=== PATIENT | female | born 2000 | race African-American/Black ===

== ENCOUNTER 2025-05-04 23:25 | Emergency (ER) | payer MEDICAID ==
[~2025-05-04] VITALS: Ht 167.6 cm; Wt 68.7 kg
[2025-05-05] MEDS ORDERED: KETOROLAC TROMETH 60MG/2ML VIAL IM ONE (00:15)
--- NOTE | 2025-05-05 01:11 | DVH ---
CLINICAL INDICATION: Trauma/fall TECHNIQUE: 1-view pelvis, 2 views left hip, 4 views left femur XY L FEMUR XRAY, XY L HIP COMPLETE XR AY Comparison: None FINDINGS: No acute fracture or dislocation. Normal osseous mineralization. No significant degenerative change . No appreciable soft tissue swelling. Right pelvic surgical clip. IMPRESSION: 1. No acute osseous finding of the pelvis, left hip or femur.
--- NOTE | 2025-05-05 01:11 | DVH ---
INDICATION: Trauma/fall TECHNIQUE: 4 views of the lumbar spine were obtained. COMPARISON: None FINDINGS: No vertebral fracture or compression deformity. Normal lordotic curvature without listhesis. No sign ificant spondylotic change. The imaged ribs and osseous pelvis are intact. Right upper quadrant belinda gical clips. IMPRESSION: 1. No acute finding of the lumbar spine.
[2025-05-05] MEDS ORDERED: IBUP-1455 PO (01:50)
[2025-05-05] MEDS ORDERED: HYDR-4902 PO (01:50)
--- NOTE | 2025-05-05 01:51 | ED.PDOC ---
Jonna. trauma (HPI) HPI Comments This patient is a 24-year-old female who arrives the ED today for evaluation of back pain, left hip pain and left upper leg pain status post ground level fall approximately five days ago at home. Patient states that time she slipped in the kitchen and landed on her back and hip. Patient states that the pain continues and now has become difficult to ambulate. Patient denies any fever nausea or vomiting. Patient denies any head trauma. Patient denies any blood loss. Chief Complaint: Back Pain Time Seen by MD: 00:00 Reviewed notes: Nurses Notes Allergies: Coded Allergies: NO KNOWN ALLERGIES (Unverified , 05/04/25) Information Source: Patient Mode of Arrival: Wheelchair Severity: Moderate Timing: Days Duration: Since onset Prehospital treatment: Treatment Location: Back, (L) Hip, (L) Leg Location of laceration: None Mechanism: Blunt trauma, Fall Past Medical History PAST MEDICAL HISTORY: Denies Surgical History: Denies all surgeries ACTIVITY THERAPY TEACHER History: No Pertinent ACTIVITY THERAPY TEACHER History Family History Family History: Reviewed,noncontributory to illness, No family hx of Cancer, No family hx of DM, No family hx of Heart aniceto, No family hx of HTN, No family hx ofKidney aniceto, No family hx of Liver aniceto, No family hx of Lung aniceto, No family hx of Stroke Social History Smoker: Non-Smoker Alcohol: Denies ETOH Use Drugs: Denies Drug Use Lives In: Home Constitutional: denies: chills, diaphoresis, fatigue, fever, malaise, sweats, weakness, others EENTM: denies: blurred vision, double vision, ear bleeding, ear discharge, ear drainage, ear pain, ear ringing, eye pain, eye redness, hearing loss, mouth pain, mouth swelling, nasal discharge, nose bleeding, nose congestion, nose pain, photophobia, tearing, throat pain, throat swelling, voice changes, others Respiratory: denies: cough, hemoptysis, orthopnea, SOB at rest, shortness of breath, SOB with excertion, stridor, wheezing, others Cardiovascular: denies: chest pain, dizzy spells, diaphoresis, Dyspnea on exertion, edema, irregular heart beat, left arm pain, lightheadedness, p alpitations, PND, syncope, others Gastrointestinal: denies: abdomen distended, abdominal pain, blood streaked bowels, constipated, diarrhea, dysphagia, difficulty swallowing, hematemesis, melena, nausea, poor appetite, poor fluid intake, rectal bleeding, rectal pain, vomiting, others Genitourinary: denies: abnormal vagina bleeding, burning, dyspareunia, dysuria, flank pain, frequency, hematuria, incontinence, pain, , vagina discharge, urgency, others Neurological: denies: dizziness, fainting, headache, left sided numbness, left sided weakness, numbness, paresthesia, pre-existing deficit, right sided numbness, right sided weakness, seizure, speech problems, tingling, tremors, weakness, others Musculoskeletal: reports: back pain, others (Left hip and left thigh pain); denies: gout, joint pain, joint swelling, muscle pain, muscle stiffness, neck pain Integumetry: denies: bruises, change in color, change in hair/nails, dryness, laceration, lesions, lumps, rash, wounds, others Allergic/Immunocompromised: denies: Difficulty Healing, Frequent Infections, Hives, Itching, others Hematologic/Lymphatic: denies: anemia, blood clots, easy bleeding, easy bruising, swollen glands, others Endocrine: denies: excessive hunger, excessive sweating, excessive thirst, excessive urination, flushing, intolerance to cold, intolerance to heat, unexplained weight gain, unexplained weight loss, others Psychiatric: denies: anxiety, bipolar disorder, depression, hopeless, panic disorder, schizophrenia, sleepless, suicidal, others Physical Exam General Appearance: Moderate Distress (Due to complaint concerns), Normal HEENT: Normal ENT Inspection, Pharynx Normal, TMs Normal Neck: Full Range of Motion, Non-Tender, Normal, Normal Inspection Respiratory: Chest Non-Tender, Lungs Clear, No Accessory Muscle Use, No Respiratory Distress, Normal Breath Sounds Cardiovascular: No Edema, No JVD, No Murmur, No Gallop, Normal Peripheral Pulses, Regular Rate/Rhythm Breast Exam: Deferred Gastrointestinal: No Organomegaly, Non Tender, No Pulsatile Mass, Normal Bowel Sounds, Soft Genitalia: Deferred Pelvic: Deferred Rectal: Deferred Extremities: Other (Tenderness to palpation throughout the left hip region and the superior femur. No definitive signs of trauma. Moderate reduced range of motion. Patient has difficulty bearing weight.) Musculoskeletal : Location: Bilateral Extremity Location: Back (Diffuse tenderness to palpation throughout the lumbar spine. No signs of trauma. No step-offs noted. Patient denies any sa ddle paresthesia. Distal neurovascularly intact.) Apperance: Normal Neurologic: Alert, No Motor Deficits, Normal Affect, Normal Mood, No Sensory Deficits Cerebellar Function: NOT DONE Reflexes: NOT DONE Skin: Dry, Normal Color, Warm Lymphatic: No Adenopathy Was a procedure done? Was a procedure done?: No Differential Diagnosis Multiple Trauma: Other (Lumbar vertebrae fracture, lumbar contusion, pelvic fracture, pelvic contusion, femoral fracture, leg contusion) X-Ray, Labs, Meds, VS Vital Signs Date Time Temp Pulse Resp B/P (MAP) Pulse Ox O2 Delivery O2 Flow Rate FiO2 05/04/25 23:27 97.7 75 16 146/100 99 97.7 X-Ray, Labs, Meds, VS Comment All studies performed the ED were evaluated by me personally. Imaging studies were unremarkable for any acute fractures. Patient appears to have sustained some contusions. Advised pain medication as well as ice therapy. Time of 1ST Reevaluation: 01:48 Reevaluation 1ST: Improved Consultation: PCP Patient Education/Counseling: Diagnosis, Treatment Family Education/Counseling: Diagnosis, Treatment Departure 1 Departure Time of Disposition: 01:48 Impression: Primary Impression: Contusion of lower back and pelvis, initial encounter Disposition: HOME / SELF CARE / HOMELESS Condition: Stable Additional Instructions: Advised pain medication as needed for symptomatic relief as well as ice therapy. If symptoms continue, patient will need to follow up with the primary care provider for long-term management e-Prescriptions Hydrocodone-Acetaminophen (Hydrocodone Bitartrate/AC 5-325 mg) 1 Tab Tab 1 TAB PO Q6HP PRN, #15 TAB Prov: GERMAN DAVID PAC 05/05/25 Ibuprofen Micronized (Ibuprofen) 800 Mg Tab 800 MG PO Q8HP PRN, #20 TAB Prov: GERMAN DAVID PAC 05/05/25 Discharged With: Self, Friend Critical Care Note Critical Care Time?: No Stability Stability form required: GERMAN Lauren PAC May 05, 2025 01:51
[2025-05-05 02:55] VITALS: BP 146/102; PULSE 64; RESP 18; TEMP 98; O2SAT 100
[2025-05-05] MEDS ORDERED: HYDROcodone-ACET 10/325MG TAB ONE (03:12)
[2025-05-05] MEDS: HYDROcodone-ACET 10/325MG TAB PO ONE (03:17)
[2025-05-06] MEDS ORDERED: ACET500T58 PO (14:20)
[2025-05-06] MEDS ORDERED: METH-1181 PO (14:20)
[2025-05-06] MEDS ORDERED: TRAM-626 PO (15:17)
== END 2025-05-05 04:08 | disposition left against medical advice (07) ==
LOC: ER 23:25
DX: S30.0XXA Contusion of lower back and pelvis, initial encounter (principal); W01.0XXA Fall on same level from slipping, tripping and stumbling without subsequent striking against object, initial encounter; Y93.89 Activity, other specified; Y92.000 Kitchen of unspecified non-institutional (private) residence as the place of occurrence of the external cause; Y99.8 Other external cause status
CPT/HCPCS: 72100; 73502

== ENCOUNTER 2025-05-06 12:04 | Emergency (ER) | payer MEDICAID ==
[~2025-05-06] VITALS: Ht 165.1 cm; Wt 101.2 kg
[~2025-05-06 12:04] MED LIST: HYDR-4902 PO; IBUP-1455 PO
[2025-05-06 12:14] VITALS: BP 138/93; PULSE 80; RESP 16; TEMP 98.3; O2SAT 100
[2025-05-06] MEDS ORDERED: METH-1181 PO (14:20)
[2025-05-06] MEDS ORDERED: ACET500T58 PO (14:20)
--- NOTE | 2025-05-06 14:20 | ED.PDOC ---
Back pain HPI HPI Comments 24-year-old female presents to the ER with a chief complaint of back pain S/P fall. The patient presents with a severe back pain and leg pain following a fall. Approximately one week ago they fell in the kitchen while cooking, slipping on oil and landing on the left hip and side. Initially the pain seemed to improve but has progressively worsened. The pain originated in their back in his since radiated to there hip and leg. They described the sensation as feeling like the legs are attached to the spine and dragging. The pain is severe enough to disrupt sleep as they were unable to sleep last night due to discomfort. There has been taking ibuprofen for the pain relief but has been insufficient. [place] was prescribed, but the pharmacy did not receive the prescription, leaving them without adequate pain management. X-rays has been taken, but the patient is unsure if further imaging such as MRI will be performed and expressed a belief that the MRI might be needed. Denies any other symptoms at this time. Chief Complaint: Back Pain Time Seen by MD: 14:15 Reviewed Notes: Nurses Notes, Medications, Allergies Allergies: Coded Allergies: NO KNOWN ALLERGIES (Unverified , 05/04/25) Home Meds Active Scripts Tramadol HCl (Tramadol HCl) 50 Mg Tab, 50 MG PO Q8HP PRN for 2 Days, #6 TAB 0 Refills Prov:JUANITO CARD ALLERGIST/PEDIATRIC PULMONOLOGIST 05/06/25 Acetaminophen (Acetaminophen) 500 Mg Tab, 500 MG PO Q8HP PRN for 10 Days, #30 TAB 0 Refills Prov:JUANITO CARD NP 05/06/25 Methocarbamol (Methocarbamol) 500 Mg Tab, 500 MG PO Q8HP PRN for 10 Days, #30 TAB 0 Refills Prov:JUANITO CARD ALLERGIST/PEDIATRIC PULMONOLOGIST 05/06/25 Hydrocodone-Acetaminophen (Hydrocodone Bitartrate/AC 5-325 mg) 1 Tab Tab, 1 TAB PO Q6HP PRN, #15 TAB Prov:GERMAN DAVID PAC 05/05/25 Ibuprofen Micronized (Ibuprofen) 800 Mg Tab, 800 MG PO Q8HP PRN, #20 TAB Prov:GERMAN DAVID PAC 05/05/25 Information Source: Patient Mode of Arrival: Ambulatory Timing: Days Duration: Since onset, Days Severity: Moderate Prehospital treatment: None Quality: Aching Onset: Fall Circumstance: Other (In the kitchen) History of: None Associated signs and symptoms: None Past Medical History PAST MEDICAL HISTORY: Denies Surgical History: Denies all surgeries INSOLE BUFFER History: No Pertinent INSOLE BUFFER History Family History Family History: Reviewed,noncontributory to illness, Unknown Social History Smoker: Non-Smoker Alcohol: Denies ETOH Use Drugs: Denies Drug Use Lives In: Home Constitutional: denies: chills, diaphoresis, fatigue, fever, malaise, sweats, weakness, others EENTM: denies: blurred vision, double vision, ear bleeding, ear discharge, ear drainage, ear pain, ear ringing, eye pain, eye redness, hearing loss, mouth pain, mouth swelling, nasal discharge, nose bleeding, nose congestion, nose pain, photophobia, tearing, throat pain, throat swelling, voice changes, others Respiratory: denies: cough, hemoptysis, orthopnea, SOB at rest, shortness of breath, SOB with excertion, stridor, wheezing, others Cardiovascular: denies: chest pain, dizzy spells, diaphoresis, Dyspnea on exertion, edema, irregular heart beat, left arm pain, lightheadedness, palpitations, PND, syncope, others Gastrointestinal: denies: abdomen distended, abdominal pain, blood streaked bowels, constipated, diarrhea, dysphagia, difficulty swallowing, hematemesis, melena, nausea, poor appetite, poor fluid intake, rectal bleeding, rectal pain, vomiting, others Genitourinary: denies: abnormal vagina bleeding, burning, dyspareunia, dysuria, flank pain, frequency, hematuria, incontinence, pain, , vagina discharge, urgency, others Neurological: denies: dizziness, fainting, headache, left sided numbness, left sided weakness, numbness, paresthesia, pre-existing deficit, right sided numbness, right sided weakness, seizure, speech problems, tingling, tremors, weakness, others Musculoskeletal: reports: back pain; denies: gout, joint pain, joint swelling, muscle pain, muscle stiffness, neck pain, others Integumetry: denies: bruises, change in color, change in hair/nails, dryness, laceration, lesions, lumps, rash, wounds, others Allergic/Immunocompromised: denies: Difficulty Healing, Frequent Infections, Hives, Itching, others Hematologic/Lymphatic: denies: anemia, blood clots, easy bleeding, easy bruising, swollen glands, others Endocrine: denies: excessive hunger, excessive sweating, excessive thirst, excessive urination, flushing, intolerance to cold, intolerance to heat, unexplained weight gain, unexplained weight loss, others Psychiatric: denies: anxiety, bipolar disorder, depression, hopeless, panic disorder, schizophrenia, sleepless, suicidal, others All Other Systems: Reviewed and Negative Physical Exam General Appearance: No Apparent Distress, Normal HEENT: Normal ENT Inspection, Pharynx Normal, TMs Normal Neck: Full Range of Motion, Non-Tender, Normal, Normal Inspection Respiratory: Chest Non-Tender, Lungs Clear, No Accessory Muscle Use, No Respiratory Distress, Normal Breath Sounds Cardiovascular: No Edema, No JVD, No Murmur, No Gallop, Normal Peripheral Pulses, Regular Rate/Rhythm Breast Exam: Deferred Gastrointestinal: No Organomegaly, Non Tender, No Pulsatile Mass, Normal Bowel Sounds, Soft Genitalia: Deferred Pelvic: Deferred Rectal: Deferred Extremities: No calf tenderness, Normal capillary refill, Normal inspection, Normal range of motion, Non-tender, No pedal edema Musculoskeletal : Apperance: Normal Neurologic: Alert, fisher diving II-XII nml as Tested, No Motor Deficits, Normal Affect, Normal Mood, No Sensory Deficits Cerebellar Function: Normal Reflexes: Normal Skin: Dry, Normal Color, Warm Lymphatic: No Adenopathy Was a procedure done? Was a procedure done?: No Back Pain Differential Dx Differential Diagnosis: Musculoskeletal Pain X-Ray, Labs, Meds, VS Vital Signs Date Time Temp Pulse Resp B/P (MAP) Pulse Ox O2 Delivery O2 Flow Rate FiO2 05/06/25 12:14 98.3 80 16 138/93 100 98.3 Current Medications Medications (Trade) Dose Ordered Sig/Kate Route Start Time Stop Time Status Last Admin Ketorolac Tromethamine (Toradol Injection) 30 mg ONCE ONCE IM 05/06/25 14:30 05/06/25 14:41 DC 05/06/25 14:30 X-Ray, Labs, Meds, VS Comment 24-year-old female presents to the ER with a chief complaint of back pain S/P fall. Patient arrives alert and oriented, ABC's intact, afebrile, vital signs stable, saturating well in room air Patient was given: Ketorolac. Tolerated medications with no adverse reaction. I considered cauda equina, spinal cord compression, vertebral malignancy/mets, acute spinal fracture, vertebral osteomyelitis, epidural abscess, infected or obstructed kidney stone, however this is less likely as the patient does not present with lower back pain red flags symptoms such as bowel or bladder dysfunction, saddle anesthesia, paresthesia, and without any history of malignancy or recent back trauma or spinal interventions. Therefore further imaging studies such as a lumbar MRI were not indicated on today's visit. Presentation most consistent with nonemergent musculoskeletal etiology versus nonemergent disc herniation. ED workup: Defer imaging and lab work for outpatient follow up at this time Disposition: Discharge. Strict return precautions discussed with the patient with full understanding. Supportive care advised (rest, ice, heat, NSAIDs, stretching exercises) Massage muscles with cold pack or ice for 20 minutes 4 times per day. Usually most useful if there is swelling during the first 48 hours Heating pad on the most painful area for 20 minutes to relieve muscle spasm Sleep and the most comfortable sleeping position (usually on the side with knees bent) Light stretching, no strenuous activity, avoid frequent bending, avoid carrying heavy objects Discussed possible benefits of yoga and acupuncture Return precautions discussed including Inability to walk/bear weight Paresthesia/weakness/leg pain Fecal/urinary incontinence Any worsening symptoms Patient is stable for discharge at this time. External notes reviewed. Test results and diagnostic imaging interpreted. All diagnostic findings, discharge care, education and instructions provided Follow-up with PCP in 2 to 3 days Patient verbalized understanding and agreed to treatment plan Vital signs stable, afebrile, no acute distress noted Patient ambulatory with strong steady gait Advised to return precautions for any new or worsening symptoms, return to ER immediately for re-evaluation Patient is aware that the purpose of this visit was for an acute medical emergency requiring emergent stabilization. Chronic conditions, including malignancies have not been ruled out. Patient is instructed to follow up with PCP as directed and discharge instructions for continued care and workup. If unable to arrange follow-up, patient is to return to the emergency department for reassessment. Patient (parent or legal guardian if applicable) was given verbal and written discharge instructions and acknowledges understanding. Kathy for operative Additional MDM Review of External, Non-ED records: External records reviewed. Discussion with independent historian (EMS, family) history obtained from the patient/parents (if applicable) at bedside Chronic conditions affecting care: None Social determinants of health affecting care: None Consideration of admission (observation or admission): I considered escalation of care to admission for this patient, however given the reassuring workup, the patient is safe for outpatient management. Discussion with the Radiology: No Tests considered but not performed: Prescription medication considered but not given: 12 lead EKG interpretation: Time of 1ST Reevaluation: 14:45 Reevaluation 1ST: Unchanged Patient Education/Counseling: Diagnosis, Treatment, Prognosis Family Education/Counseling: No Family Present SEPSIS Sepsis Screen Date sepsis recognized/suspect: May 06, 2025 Time Sepsis recognized/suspect: 1216 Recent Procedure: No On Antibiotic Therapy: No Respiratory Rate >20: No Heart Rate >90: No Temp<36 C (96.8 F) or >38.3 C: No SBP <90 or MAP <65 mmHG: No New Acute Mental Status Change: No Is the patient on CPAP, BIPAP,: No Vital Signs Date Time Temp Pulse Resp B/P (MAP) Pulse Ox O2 Delivery O2 Flow Rate FiO2 05/06/25 12:14 98.3 80 16 138/93 100 98.3 Departure 1 Departure Time of Disposition: 14:19 Impression: Primary Impression: Back pain Qualified Codes: M54.50 - Low back pain, unspecified Additional Impression: Hip pain Qualified Codes: M25.552 - Pain in left hip Disposition: 01 HOME / SELF CARE / HOMELESS Condition: Stable e-Prescriptions Tramadol HCl (Tramadol HCl) 50 Mg Tab 50 MG PO Q8HP PRN for 2 Days, #6 TAB 0 Refills Prov: JUANITO CARD NP 05/06/25 Acetaminophen (Acetaminophen) 500 Mg Tab 500 MG PO Q8HP PRN for 10 Days, #30 TAB 0 Refills Prov: JUANITO CARD NP 05/06/25 Methocarbamol (Methocarbamol) 500 Mg Tab 500 MG PO Q8HP PRN for 10 Days, #30 TAB 0 Refills Prov: JUANITO CARD NP 05/06/25 Critical Care Note Critical Care Time?: No Stability Stability form required: No Heart Score Heart Score: Heart Score Response (Comments) Value History N/A 0 EKG N/A 0 Age N/A 0 Risk Factors N/A 0 Troponin N/A 0 Total 0 I personally scribed for JUANITO CARD NP ([email or web address]) on 05/06/25 at 14:53. Electronically submitted by David Rascon ([email or web address]). JUANITO CARD NP May 06, 2025 14:20
[2025-05-06] MEDS: KETOROLAC TROMETH 30 MG/ML 1ML VIAL IM ONE (14:30)
[2025-05-06] MEDS ORDERED: KETOROLAC TROMETH 30 MG/ML 1ML VIAL ONE (15:00)
[2025-05-06] MEDS ORDERED: TRAM-626 PO (15:17)
== END 2025-05-06 15:17 | disposition home or self-care (01) ==
LOC: ER 12:04
DX: M54.50 Low back pain, unspecified (principal); M25.552 Pain in left hip; M79.605 Pain in left leg; W01.0XXA Fall on same level from slipping, tripping and stumbling without subsequent striking against object, initial encounter; Y93.89 Activity, other specified; Y92.000 Kitchen of unspecified non-institutional (private) residence as the place of occurrence of the external cause; Y99.8 Other external cause status
CPT/HCPCS: 96372; 99283; J1885